=== PATIENT | male | born 1975 | race Caucasian/White ===

== ENCOUNTER 2021-02-08 12:18 | Emergency (ER) | payer SELFPAY ==
[~2021-02-08] VITALS: Ht 175.3 cm; Wt 119.0 kg
[2021-02-08 12:28] VITALS: BP 144/74
--- NOTE | 2021-02-08 12:55 | PHYS DOC ---
Past History Additional Past Medical Histor: carpal tunnel (ABDULLAHI DAVID APRN) Past Surgical History: No Surgical History (ABDULLAHI DAVID APRN) Alcohol Use: Rarely (ABDULLAHI DAVID APRN) Adult General Chief Complaint Chief Complaint: WRIST PAIN HPI HPI Patient is a 45-year-old male presents emergency department chief complaint of breakthrough bilateral wrist pain related to his carpal tunnel syndrome. 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 Patient reports taking gabapentin, Tylenol, ibuprofen daily. Patient reports when he has breakthrough pain like this a short run 5-day regimen of 20 mg prednisone and hydrocodone/Butler help. Patient denies any other physical complaints or physical concerns. Patient rates his pain a 9 out of 10. Patient states this presentation of pain is consistent with his carpal tunnel syndrome breakthrough pain. (ABDULLAHI DAVID APRN) Review of Systems Review of Systems 14 body systems of review of systems have been reviewed. See HPI for pertinent positives and negative responses, otherwise all other systems are negative, nonpertinent or noncontributory. Constitutional: Negative except as outlined in HPI above. Skin: Negative except as outlined in HPI above. Eyes: Negative except as outlined in HPI above. HENT: Negative except as outlined in HPI above. Respiratory: Negative except as outlined in HPI above. Cardiovascular: Negative except as outlined in HPI above. GI: Negative except as outlined in HPI above. : Negative except as outlined in HPI above. Musculoskeletal: Negative except as outlined in HPI above. Integument: Negative except as outlined in HPI above. Neurologic: Negative except as outlined in HPI above. Endocrine: Negative except as outlined in HPI above. Lymphatic: Negative except as outlined in HPI above. Psychiatric: Negative except as outlined in HPI above. (ABDULLAHI DAVID APRN) Allergies Allergies Allergies Coded Allergies Type Severity Reaction Last Updated Verified amoxicillin Allergy Unknown 02/08/21 Yes tramadol Allergy Unknown 02/08/21 Yes (ABDULLAHI DAVID APRN) Physical Exam Physical Exam Constitutional: Well developed, well nourished, no acute distress, non-toxic ruby earance. 45-year-old male self splinting bilateral wrists otherwise in no apparent distress. HENT: Normocephalic, atraumatic. Eyes: Conjunctiva normal, no discharge. Neck: Normal range of motion, no stridor. Cardiovascular: No cyanosis appreciated, distal cap refill less than 2 seconds. Lungs & Thorax: Patient is in no respiratory distress, no audible adventitious lung sounds appreciated. Abdomen: Nontender, no abnormalities noted. Skin: Warm, dry, no erythema, no rash. Back: No tenderness, no deformities. Extremities: No tenderness, no cyanosis, no clubbing, ROM intact, no edema. Except for bilateral wrists, pain elicited with Tinel's test test bilaterally. No swelling appreciated, full AROM/PROM of hand and finger joints, no erythema or infectious process appreciated. Neurologic: Alert and oriented X 3, normal motor function, normal sensory function, no focal deficits noted. Psychologic: Affect normal, judgement normal, mood normal. (ABDULLAHI DAVID APRN) Current Patient Data Vital Signs Vital Signs Date Time Temp Pulse Resp B/P (MAP) Pulse Ox O2 Delivery O2 Flow Rate FiO2 02/08/21 12:28 97.9 82 18 144/74 95 Room Air (ABDULLAHI DAVID APRN) EKG EKG [] (ABDULLAHI DAVID APRN) Radiology/Procedures Radiology/Procedures [] (ABDULLAHI DAVID APRN) Heart Score C/O Chest Pain: No Risk Factors: Risk Factors: DM, Current or recent (<one month) smoker, HTN, HLP, family history of CAD, obesity. Risk Scores: Risk Factors: DM, Current or recent (<one month) smoker, HTN, HLP, family history of CAD, obesity. (ABDULLAHI DAVID APRN) Course & Med Decision Making Course & Med Decision Making Pertinent Labs and Imaging studies reviewed. (See chart for details) 45-year-old male, vital signs reviewed, presents to the emergency department concerning bilateral wrist carpal tunnel syndrome breakthrough pain. Patient is requesting medication prescription for prednisone and hydrocodone. Physical examination consistent with carpal tunnel syndrome pain, unlikely a tenosynovitis, no signs of compartment syndrome. 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 Patient does present with drug-seeking type behavior however and examination through [facility] did not reveal signs of drug- seeking or drug abuse. Will prescribe prednisone and short regimen of Butler for acute breakthrough pain. Discussed ED planning and discharge with patient, patient is amenable to this plan. Discussed with the patient all findings and diagnostic testing as well as the need to follow-up with their primary care provider for further evaluation and treatment or return to the ED if any new or worsening symptoms. Strict return precautions were also discussed at length, the patient voiced understanding and agreement with the discharge planning. The patient was nontoxic in appearance, in no apparent distress, and hemodynamically stable at the time of disposition. (ABDULLAHI DAVID APRN) Dragon Disclaimer Dragon Disclaimer This electronic medical record was generated, in whole or in part, using a voice recognition dictation system. (ABDULLAHI DAVID APRN) Attending Co-Sign The patient was seen and interviewed as well as examined at the bedside. The chart was reviewed. The case was discussed. Agree with the plan of care. (RHONDA NUNO DO) Departure Departure: Impression: Primary Impression: Carpal tunnel syndrome on both sides Disposition: HOME / SELF CARE / HOMELESS Condition: GOOD Referrals: PCP,NO (PCP) Patient Instructions: Carpal Tunnel Syndrome Additional Instructions: You were seen today in the emergency department for carpal tunnel syndrome breakthrough pain. You have indicated you are working from out of town and plan to return home in 2 weeks. You revealed that you have a carpal tunnel release surgery scheduled for 3 weeks. Please keep this appointment. I am prescribing you 20 mg prednisone to take once a day for 5 days along with a short regimen of hydrocodone pain medication for acute severe breakthrough pain. Please use as directed. Please do not drive or operate heavy machinery while taking hydrocodone pain medication. You did indicate that you take daily Tylenol for carpal tunnel syndrome pain, please reduce your Tylenol intake accordingly as each tablet of hydrocodone contains 325 mg of acetaminophen. Please return to the emergency department for worsening symptoms other concerns. Thank you for visiting our Emergency Department. It was a pleasure taking care of you today in the emergency department and we appreciate you trusting us with your care. If any additional problems come up don't hesitate to return to visit us. Please follow up with your primary care provider so they can plan additional care if needed and know about the problem that you had. If symptoms worsen come back to the Emergency Department. Any concerning symptoms that start such as chest pain, shortness of air, weakness or numbness on one side of the body, running high fevers or any other concerning symptoms return to the ER. EMERGENCY DEPARTMENT GENERAL DISCHARGE INSTRUCTIONS Thank you for coming to [facility] (ED) today and trusting us with you care. We trust that you had a positivie experience in our Emergency Department. If you wish to speak to the department management, you may call the director at . YOUR FOLLOW UP INSTRUCTIONS ARE FOLLOWS: 1. Do you have a private Doctor? If you do not have a private doctor, please ask for a resource list of physicians or clinics that may be able to assist you with follow up care. 2. The Emergency Physician has interpreted your x-rays. The X-Ray specialist will also review them. If there is a change in the findings, you will be notified in 48 hours when at all possible. 3. A lab test or culture has been done, your results will be reviewed and you will be notified if you need a change in treatment. ADDITIONAL INSTRUCTIONS AND INFORMATION: 1. Your care today has been supervised by a physician who is specially trained in emergency care. Many problems require more than one evaluation for a complete diagnosis and treatment. We recommend that you schedule your follow up appointment as recommended to ensure complete treatment of you illness or injury. If you are unable to obtain follow up care and continue to have a problem, or if your condition worsens, we recommend that you return to the ED. 2. We are not able to safely determine your condition over the phone nor are we able to give sound medical advice over the phone. For these safety reasons, if you call for medical advice we will ask you to come to the ED for further evaluation. 3. If you have any questions regarding these discharge instructions please call the ED at [phone]. SAFETY INFORMATION: In the interest of safety, wellness, and injury prevention; we encourage you to wear your sealbelt, if you smoke; quite smoking, and we encourage family to use a protective helmet for bicycling and other sporting events that present an increased risk for head injury. IF YOUR SYMPTOMS WORSEN OR NEW SYMPTOMS DEVELOP, OR YOU HAVE CONCERNS ABOUT YOUR CONDITION; OR IF YOUR CONDITION WORSENS WHILE YOU ARE WAITING FOR YOUR FOLLOW UP APPOINTMENT; EITHER CONTACT YOUR PRIMARY CARE DOCTOR, THE PHYSICIAN WHOSE NAME AND NUMBER YOU WERE GIVEN, OR RETURN TO THE ED IMMEDIATELY. Scripts Hydrocodone Bit/Acetaminophen (HYDROCODONE-APAP 10-325 ) 1 Each Tablet 1 TAB PO PRN Q6HRS PRN for SEVERE PAIN 7-10, #15 TAB 0 Refills Prov: ABDULLAHI DAVID APRN 02/08/21 Prednisone (PREDNISONE) 20 Mg Tablet 1 TAB PO DAILY for carpal tunnel syndrome for 5 Days, #5 TAB 0 Refills Prov: ABDULLAHI DAVID APRN 02/08/21 ABDULLAHI DAVID APRN Feb 08, 2021 12:55 RHONDA NUNO DO Feb 10, 2021 15:25
[2021-02-08] MEDS ORDERED: HYDR-2769 PO (13:19)
[2021-02-08] MEDS ORDERED: PRED20TA PO (13:19)
== END 2021-02-08 13:24 | disposition home or self-care (01) ==
LOC: ER 12:18
DX: G56.03 Carpal tunnel syndrome, bilateral upper limbs (principal); Z88.1 Allergy status to other antibiotic agents; Z88.5 Allergy status to narcotic agent
CPT/HCPCS: 99283